=== PATIENT | female | born 1995 | race Caucasian/White ===

== ENCOUNTER 2016-11-16 17:43 | Emergency (ER) ==
[2016-11-16] MEDS ORDERED: NORCO-5 PO ONE (19:11)
[2016-11-16] MEDS ORDERED: FLEXERIL PO ONE (19:11)
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
[2016-11-16 20:24] LABS: UR AMPHETAMINES QUAL NONE DETECTED (NONE DETECT); UR BARBITUATES QUAL NONE DETECTED (NONE DETECT); UR BENZODIAZEPIN QUAL NONE DETECTED (NONE DETECT); UR CANNABINOIDS QUAL NONE DETECTED (NONE DETECT); UR COCAINE QUAL NONE DETECTED (NONE DETECT); UR METHADONE QUAL NONE DETECTED (NONE DETECT); UR OPIATES QUAL NONE DETECTED (NONE DETECT); UR OXYCODONE QUAL NONE DETECTED (NONE DETECT); UR PCP QUAL NONE DETECTED (NONE DETECT)
[2016-11-16 20:46] VITALS: BP 121/84
--- NOTE | 2016-11-17 08:11 | Diag Imaging Result Document ---
PROCEDURE NAME: KNEE 3 VIEWS RIGHT - 11/16/2016 RIGHT KNEE, THREE VIEWS: FINDINGS: No fracture. No dislocation. IMPRESSION: No acute bony injury.
--- NOTE | 2016-11-17 08:44 | Diag Imaging Result Document ---
PROCEDURE NAME: RIBS BILATERAL W/PA CHEST - 11/16/2016 PLAIN RADIOGRAPH OF THE CHEST AND BILATERAL RIBS: COMPARISON: None available. FINDINGS: There is no discrete rib fracture or intrinsic osseous lesion. The lungs are clear. There is no pleural fluid collection or pneumothorax. Cardiac silhouette and central vasculature are unremarkable. IMPRESSION: No evidence of rib fracture or other acute chest pathology.
--- NOTE | 2016-11-17 08:47 | Diag Imaging Result Document ---
PROCEDURE NAME: CERVICAL SPINE COMPLETE - 11/16/2016 PLAIN RADIOGRAPH OF THE CERVICAL SPINE 6 VIEWS: COMPARISON: None available. FINDINGS: There is no discrete fracture, subluxation, or intrinsic osseous lesion. The surrounding soft tissues are grossly unremarkable. IMPRESSION: Essentially unremarkable plain radiograph.
== END 2016-11-16 20:35 | disposition home or self-care (01) ==
LOC: EDBD → ED 17:43
DX: M54.2 Cervicalgia (principal); M25.561 Pain in right knee; R51 Headache; R42 Dizziness and giddiness; M54.9 Dorsalgia, unspecified; M79.1 Myalgia; F17.210 Nicotine dependence, cigarettes, uncomplicated; V59.40XA Driver of pick-up truck or van injured in collision with unspecified motor vehicles in traffic accident, initial encounter
CPT/HCPCS: 71111; 72050; G0480; 80324; 80345; 80346; 80349; 80353; 80358; 80361; 80365; 83992